=== PATIENT | male | born 1975 | race Caucasian/White ===

== ENCOUNTER 2016-10-16 21:33 | Emergency (ER) | payer OTHER ==
[~2016-10-16] VITALS: Ht 170.2 cm; Wt 86.2 kg
[2016-10-16 21:42] VITALS: BP 120/76
[2016-10-16 22:29] LABS: ABSOLUTE BASOPHIL COUNT 0.1 /CUMM (0.0-0.2); ABSOLUTE EOSINOPHIL COUNT 0.5 /CUMM (0.0-0.7); ABSOLUTE GRANULOCYTE CT 3.1 /CUMM (1.4-6.5); ABSOLUTE LYMPH COUNT 2.4 /CUMM (1.2-3.4); ABSOLUTE MONOCYTE COUNT 0.7 /CUMM (0.10-0.60); BASOPHIL % 1.5 % (0.0-2.0); EOSINOPHIL % 7.2 % (0-5); GRANULOCYTE % 45.6 % (42.2-75.2); MEAN CORPUSCULAR HGB 30.9 PG (27.0-31.0); MEAN CORPUSCULAR HGB CONC 33.8 G/DL (33.0-37.0); MEAN CORPUSCULAR VOLUME 91.6 FL (80.0-94.0); MEAN PLATELET VOLUME 8.3 FL (7.4-10.4); PLATELET COUNT 253 /CUMM (130-400); RBC DISTRIBUTION WIDTH 13.5 % (11.5-14.5); RED BLOOD CELL CT 4.15 /CUMM (4.70-6.10); WHITE BLOOD CELL COUNT 6.9 /CUMM (4.8-10.8)
[2016-10-17] MEDS ORDERED: BACTRIM DS TAB1 EACH PO (01:35)
--- NOTE | 2016-10-17 01:37 | ED SKIN/ALLERGY COMPLAINT ---
History of Present Illness General Chief Complaint: Lower Extremity Problems Stated Complaint: PT HAS A POSSIBLE INFECTION IN THE LT LEG Source: patient, family, old records Exam Limitations: no limitations Vital Signs & Intake/Output Vital Signs & Intake/Output Vital Signs Date Time Temp Pulse Resp B/P B/P Pulse O2 O2 Flow FiO2 Mean Ox Delivery Rate 10/16 2142 97.6 71 18 120/76 97 Room Air ED Intake and Output 10/17 0000 10/16 1200 Intake Total Output Total Balance Patient 190 lb Weight Weight Reported by Patient Measurement Method Allergies Coded Allergies: No Known Drug Allergies (NKDA 10/16/16) Reconcile Medications Sulfamethoxazole/Trimethoprim (Bactrim Ds Tablet) 800 MG-160 MG TABLET 1 TAB PO BID abscess Triage Note: PT TO ED C/O ?INFECTION TO LEFT LATERAL THIGH "GETTING WORSE OVER THE LAST 3 DAYS" Triage Nurses Notes Reviewed? yes Onset: 3 days Duration: day(s):, constant, continues in ED, getting worse Timing: recent history Severity: severe Location: extremities Possible Factors: no cause identified Modifying Factors: Worsens With: scratching. Associated Symptoms: blisters, change in skin texture, rash HPI: 3 days prior to admission patient complains of increasing redness and painful lump to the left lateral thigh that he's been squeezing expressing a yellow thick discharge. He denies fever chills nausea vomiting diarrhea abdominal pain chest pain shortness breath headache dysuria bleeding. Past History Travel History Traveled to [place] past 21 day No Medical History Any Pertinent Medical History? see below for history Musculoskeletal: psoariatic arthritis Surgical History Surgical History: non-contributory Psychosocial History What is your primary language Khmer Tobacco Use: Current Not Daily ETOH Use: occasional use Illicit Drug Use: denies illicit drug use Family History Hx Contributory? No Review of Systems Review of Systems Constitutional: Reports: no symptoms. EENTM: Reports: no symptoms. Respiratory: Reports: no symptoms. Cardiovascular: Reports: no symptoms. GI: Reports: no symptoms. Genitourinary: Reports: no symptoms. Musculoskeletal: Reports: no symptoms. Skin: Reports: see HPI, rash. Neurological/Psychological: Reports: no symptoms. Hematologic/Endocrine: Reports: no symptoms. Immunologic/Allergic: Reports: no symptoms. All Other Systems: Reviewed and Negative Physical Exam Physical Exam General Appearance: well developed/nourished, alert, awake, mild distress Head: atraumatic, normal appearance Eyes: Bilateral: normal appearance, PERRL, EOMI. Ears, Nose, Throat: normal pharynx, normal ENT inspection, hearing grossly normal Neck: normal inspection, supple Respiratory: normal breath sounds Cardiovascular: regular rate/rhythm, normal peripheral pulses, norml femoral pulses equa Peripheral Pulses: 4+ carotid (R), 4+ carotid (L) Gastrointestinal: soft, non-tender Back: normal inspection, normal range of motion, no vertebral tenderness Extremities: normal inspection, normal capillary refill, normal range of motion, no edema Neurologic/Psych: awake, alert, oriented x 3, normal mood/affect Reflexes: 2+: bicep (R), bicep (L). Skin: warm/dry, rash Skin Problem Location: lower extremities (left lateral thigh) Skin Problem Character: abcess (5 cm2), erythema, tenderness, thickening Lymphatic: no anterior cervical leatha Progress Differential Diagnosis: abscess/cellulitis, allergic reaction, contact dermatitis Plan of Care: Orders Procedure Date/time Status COMPREHENSIVE METABOLIC PANEL 10/17 2215 Complete CBC WITHOUT DIFFERENTIAL 10/17 2215 Complete Laboratory Tests 10/16/16 2222: Anion Gap 12, Estimated GFR > 60, BUN/Creatinine Ratio 27.5 H, Glucose 114 H, Calcium 8.9, Total Bilirubin 0.7, AST 36, ALT 40, Alkaline Phosphatase 72, Total Protein 7.3, Albumin 4.1, Globulin 3.2, Albumin/Globulin Ratio 1.3, CBC w Diff NO MAN DIFF REQ, RBC 4.15 L, MCV 91.6, MCH 30.9, RDW 13.5, MPV 8.3, Gran % 45.6 , Lymphocytes % 35.1, Monocytes % 10.6 H, Eosinophils % 7.2 H, Basophils % 1.5 , Absolute Granulocytes 3.1, Absolute Lymphocytes 2.4, Absolute Monocytes 0.7 H , Absolute Eosinophils 0.5, Absolute Basophils 0.1, PUBS MCHC 33.8 Departure Departure Time of Disposition: 134 Disposition: HOME OR SELF CARE Condition: Stable Clinical Impression Primary Impression: Abscess of left thigh Referrals: VENECIA SANDERS,EDWAR Mendoza (PCP/Family) TANISHA SANDERS,FUNMI Perdomo Call for surgical follow up Additional Instructions: Return in 2 days for wick removal if it has not fallen out. Departure Forms: Customer Survey General Discharge Information Prescriptions: Current Visit Scripts Sulfamethoxazole/Trimethoprim (Bactrim Ds Tablet) 1 TAB PO BID #20 TAB Procedures Incision and Drainage Site: L lateral thigh Blade Size: 10 I & D Procedure: Yes: betadine prep, sterile drapes applied, sterile dressing applied, wick placed.
== END 2016-10-17 01:48 ==
LOC: ERH 21:33
PROVIDERS: Emergency Medicine
DX: L02.416 Cutaneous abscess of left lower limb (principal)